=== PATIENT | male | born 1945 | race African-American/Black ===

== ENCOUNTER → 2017-05-04 | Outpatient (CLI) | payer OTHER ==
--- NOTE | 2017-05-04 19:24 | REP ---
Lumbar spine series: Five views. History: Chronic pain, low back pain. No comparison study. Findings: Lumbar vertebral body heights are preserved. Alignment is normal. There is no evidence of spondylolysis or spondylolisthesis. There is fairly advanced degenerative disc disease at L4-5 with sclerosis of the endplates and osteophyte formation in addition to narrowing. Moderate degenerative disc changes are seen at L3-4 and L2-3. There is osteoarthritic facet sclerosis and hypertrophy at L4-5 and L5-S1 bilaterally. Vascular calcification is noted in a normal caliber aorta. Sacrum and SI joints are intact. Psoas margins are symmetric. Impression: Degenerative disc and osteoarthritic facet changes most pronounced at L4-5. Signed by Jono Joe MD 05/04/2017 07:58 P
== END ==
LOC: M RAD 16:44
PROVIDERS: ATTEND Physician Assistant
DX: M54.5 Low back pain (principal); G89.29 Other chronic pain